=== PATIENT | male | born 1980 | race Caucasian/White ===

== ENCOUNTER 2024-08-22 22:54 | Emergency (ER) | payer BC, MEDICARE, SELFPAY ==
--- NOTE | ~2024-08-22 | CT_ITS ---
Non-contrast Head CT History: Head injury Technique: Axial non-contrast imaging of the brain was performed. Dose reduction technique was used on this scan by utilizing automated exposure control and iterative reconstruction technique. The dose -length product (DLP) was 605.33 mGy-cm. Findings: There is no evidence of intracranial hemorrhage, mass lesion, or acute infarct. Brain par enchyma appears normal. The ventricles and subarachnoid spaces are normal in size. The calvarium ap pears normal. The visualized paranasal sinuses and mastoid air cells are clear. Impression: No significant abnormality seen. Reviewed, dictated and finalized at location . Impression: No significant abnormality seen.
--- NOTE | ~2024-08-22 | CT_ITS ---
CT Facial Bones and Cervical Spine Clinical Indication: Injury Technique: Contiguous axial scans were obtained through the facial bones and cervical spine followed by coronal and sagittal reconstructions. Dose reduction technique was used on this scan by utilizing automated exposure control and iterative reconstruction technique. The dose-length product (DLP) was 398.57 mGy-cm. Findings: CT facial bones: No fractures are identified. The visualized paranasal sinuses are clear. Intraorbita l soft tissues appear normal. CT cervical spine: No fractures or subluxation. There is straightening of the normal cervical lordos is. There are minimal degenerative disc changes throughout the cervical spine. Probable mild right ne ural foraminal narrowing at C3-C4. There are mild scattered facet joint degenerative changes. No prev ertebral soft tissue swelling. Impression: No fracture is seen in the facial bones. No fracture or subluxation of the cervical spine. Reviewed, dictated and finalized at [facility]. Impression: No fracture is seen in the facial bones. No fracture or subluxation of the cervical spine.
--- NOTE | ~2024-08-22 | CT_ITS ---
Noncontrast CT scan of the lumbar spine CLINICAL HISTORY: Injury TECHNIQUE: Axial noncontrast imaging of the lumbar spine was performed. Sagittal and coronal reformat michael images were constructed. Dose reduction technique was used on this scan by utilizing automated ex posure control and iterative reconstruction technique. The dose-length product (DLP) was 1060.58 mGy- cm. FINDINGS: No fracture or subluxation seen in the lumbar spine. Vertebral bodies maintain normal heigh t and alignment. There are minimal degenerative disc changes in the lumbar spine. At L1-L2, there is no disc bulge or herniation. No spinal canal stenosis or neural foraminal narrowin g. At L2-L3, there is minimal disc bulge and no nilam canal stenosis. Probable minimal facet hypertrophy . Neural foramina may be minimally narrowed. At L3-L4, there is minimal disc bulge and mild facet arthropathy. There is minimal central canal sten osis. Neural foramina are probably preserved. At L4-L5, there is disc bulge and facet arthropathy resulting in probable moderate central canal sten osis/thecal sac compression. There is moderate to severe bilateral neural foraminal narrowing. At L5-S1, there is disc bulge without nilam canal stenosis. There is moderate to advanced right neura l foraminal narrowing. Left neural foramen preserved. Paravertebral soft tissues are unremarkable. Impression: No acute fracture or subluxation. Degenerative spondylosis, as above. Reviewed, dictated and finalized at [facility]. Impression: No acute fracture or subluxation. Degenerative spondylosis, as above.
[2024-08-22 23:00] VITALS: PULSE 84; RESP 16; TEMP 36; O2SAT 100
--- NOTE | 2024-08-23 00:37 | PC.NURSE ---
Pt placed in C Collar per ANDREW Taylor
[2024-08-23 00:38] VITALS: BP 130/82; PULSE 84; RESP 13; O2SAT 98
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
[2024-08-23] MEDS: methylPREDNISolone SOD SUCC 125 MG VIAL IM (01:07)
[2024-08-23] MEDS: MORPHINE SULFATE INJ (*CRX) 10 MG/ML AMP IM (01:08)
[2024-08-23] MEDS: KETOROLAC (*BKC) 60 MG/2 ML VIAL IM (03:56)
[2024-08-23 04:01] VITALS: BP 125/81; PULSE 67; RESP 17; O2SAT 100
== END 2024-08-23 04:03 | disposition home or self-care (01) ==
PROVIDERS: Emergency Provider Registered Nurse
DX: S09.90XA Unspecified injury of head, initial encounter (principal); S16.1XXA Strain of muscle, fascia and tendon at neck level, initial encounter; F17.210 Nicotine dependence, cigarettes, uncomplicated; Z87.820 Personal history of traumatic brain injury; M47.816 Spondylosis without myelopathy or radiculopathy, lumbar region; W01.198A Fall on same level from slipping, tripping and stumbling with subsequent striking against other object, initial encounter
CPT/HCPCS: 70450; 70486; 72125; 72131; 96372; 99284; J1885; J2270; J2919; L0140